=== PATIENT | male | born 1960 | race Asian ===

== ENCOUNTER 2016-06-02 14:04 | Outpatient (CLI) | payer MEDICAID | END 2016-06-02 14:05 | disposition home or self-care (01) | DX: M50.30 Other cervical disc degeneration, unspecified cervical region (principal) ==

== ENCOUNTER 2016-09-15 10:29 | Emergency (ER) | payer MEDICAID ==
[2016-09-15] MEDS ORDERED: oxyCOD/ACETAMIN 5 MG/325 MG TABLET PO STA (11:16)
[2016-09-15] MEDS ORDERED: oxyCOD/ACETAMIN 5 MG/325 MG TABLET PO ONE (11:18)
--- NOTE | 2016-09-15 11:20 | ED Physician Documentation ---
History of Present Illness - Stated complaint Stated Complaint: MALE - Chief complaint Chief Complaint: General - Additonal information Additional information: hx from pt 56 male to ER with rectal pain and R buttock pain no fever no abd pain no constipation diarrhea or bloody BM no NV no urinary sx hx lymphoma in remission since 2012 followed at [facility] Review of Systems Constitutional: denies: Fever Cardiac: denies: Chest pain / pressure Respiratory: denies: Dyspnea GI: reports: Other (rectal pain). denies: Abdominal Pain, Nausea, Vomiting, Constipation, Diarrhea, Bloody / black stool : denies: Dysuria Endocrine: denies: Easy bruising / bleeding Immunocompromised: denies: Immunocompromised PD PAST MEDICAL HISTORY - Past Medical History Cardiovascular: None Neuro: Headache/migraine Musculoskeletal: None - Present Medications Home Medications: Ambulatory Orders Medication Instructions Recorded Confirmed Ciprofloxacin HCl [Cipro] 500 mg PO BID #20 tablet 09/15/16 oxyCODONE [Roxicodone] 5 mg PO Q6H PRN #10 tablet 09/15/16 - Allergies Allergies/Adverse Reactions: Allergies Allergy/AdvReac Type Severity Reaction Status Date / Time No Known Drug Allergies Allergy Verified 09/15/16 10:36 PD ED PE NORMAL - Vitals Vital signs reviewed: Yes - Neck Neck: Supple, no meningeal sign - Cardiac Cardiac: RRR - Respiratory Respiratory: No respiratory distress, Clear bilaterally - Abdomen Abdomen: Soft, Non tender - Rectal Rectal: Other (no fissue, no hemorrhoid, nl external, on TRE there is a smooth tender non mobile swelling to R rectal wall, stool is soft and yellow) - Derm Derm: Normal color - Extremities Extremities: No deformity Results - Vitals Vitals: Vital Signs - 24 hr 09/15/16 09/15/16 10:33 13:19 Temperature 36.3 C L Heart Rate 72 67 Respiratory 16 16 Rate Blood Pressure 137/92 H 133/62 H O2 Saturation 100 97 Oxygen O2 Source Room air - Labs Labs: Laboratory Tests 09/15/16 09/15/16 11:26 11:26 WBC 6.6 RBC 5.05 Hgb 15.5 Hct 45.3 MCV 89.7 MCH 30.6 MCHC 34.2 RDW 12.2 Plt Count 198 MPV 8.7 Neut # 3.5 Lymph # 2.5 Coryell # 0.5 Eos # 0.1 Baso # 0.0 Absolute Nucleated RBC 0.00 Nucleated RBCs 0.1 Sodium 139 Potassium 3.9 Chloride 103 Carbon Dioxide 28 Anion Gap 8.0 BUN 15 Creatinine 0.9 Estimated GFR (MDRD) 87 L Glucose 132 H Calcium 9.4 - Rads (name of study) CT abd pelvis Radiology: See rad report Departure - Departure Disposition: Home, Self Care Clinical Impression: Rectal pain Condition: Good Instructions: ED Prostatitis Follow-Up: ETHAN ARAGON MD [Provider Admit Priv/Credential] - (for further evaluation and consideration of a colonoscopy) Prescriptions: Ciprofloxacin HCl [Cipro] 500 mg PO BID #20 tablet oxyCODONE [Roxicodone] 5 mg PO Q6H PRN #10 tablet PRN Reason: Severe Pain Comments: The CT scan was fine No enlarged lymph nodes and no sign of cancer Also no perirectal mass or abscess No hemorrhoids were seen or palpated on exam and you do not have a fissure to cause the pain It is possible that the tender swelling is coming from your prostate so I have prescribed antibiotics - take the antibiotics for 10 days and then follow up with your PMD for a recheck - you may need up to three weeks of antibiotics if the symptoms continue Also please follow up with our surgical clinic for further evaluation and consideration of a colonoscopy Return to the ER if worse of if new symptoms develop Take tylenol or motrin for the pain and only take the oxycodone of the pain is very severe and not relieved with tylenol or motrin Also please follow up with your PMD about your blood pressure - it was high today Forms: Activity restrictions Discharge Date/Time: 09/15/16 13:19
[2016-09-15 11:57] LABS: BASOPHILS % (AUTO) 0.7 %; EOSINOPHILS # (AUTO) 0.1 10^3/uL (0.0-0.7); EOSINOPHILS % (AUTO) 0.9 %; HCT - HEMATOCRIT 45.3 % (42.0-52.0); HGB - HEMOGLOBIN 15.5 g/dL (14.0-18.0); LYMPHOCYTES # (AUTO) 2.5 10^3/uL (1.5-3.5); LYMPHOCYTES % (AUTO) 38.1 %; MEAN CORPUSCULAR HEMOGLOBIN 30.6 pg (27.0-31.0); MEAN CORPUSCULAR HGB CONC 34.2 g/dL (32.0-36.0); MEAN CORPUSCULAR VOLUME 89.7 fL (80.0-94.0); MEAN PLATELET VOLUME 8.7 fL (7.4-11.4); MONOCYTES # (AUTO) 0.5 10^3/uL (0.0-1.0); MONOCYTES % (AUTO) 7.6 %; NEUTROPHILS # (AUTO) 3.5 10^3/uL (1.5-6.6); NEUTROPHILS % (AUTO) 52.7 %; NUCLEATED RED BLOOD CELLS AUTO 0.1 /100WBC; RED BLOOD COUNT 5.05 10^6/uL (4.70-6.10); RED CELL DISTRIBUTION WIDTH 12.2 % (12.0-15.0); UNCORRECTED WHITE BLOOD COUNT 6.6 x10^3/uL; WHITE BLOOD COUNT 6.6 x10^3/uL (4.8-10.8)
[2016-09-15 12:01] LABS: CALCIUM 9.4 mg/dL (8.5-10.3); CREATININE 0.9 mg/dL (0.6-1.2); POTASSIUM 3.9 mmol/L (3.5-5.0)
--- NOTE | 2016-09-15 12:55 | CT Preliminary Report ---
Exam: CT Abdomen/Pelvis W/ IMPRESSION: 1. Cholelithiasis. 2. No perirectal abscess [facility] SITE ID: [id number]
--- NOTE | 2016-09-15 12:57 | CT Report ---
EXAM: CT ABDOMEN AND PELVIS EXAM DATE: 09/15/2016 12:28 PM. CLINICAL HISTORY: R rectal/buttock pain, swelling COMPARISONS: None. TECHNIQUE: Routine helical CT imaging was performed through the abdomen and pelvis. IV contrast: 30 c c [id number]. Enteric contrast: No. Reconstructions: Coronal and sagittal. In accordance with CT protocol optimization, one or more of the following dose reduction techniques w ere utilized for this exam: automated exposure control, adjustment of mA and/or KV based on patient s ize, or use of iterative reconstructive technique. FINDINGS: Lung Bases: Unremarkable. Liver: Fatty infiltrated. Gallbladder/Bile Ducts: Cholelithiasis Spleen: Normal. Pancreas: Normal. Adrenal Glands: Normal. Kidneys: Normal. No masses or hydronephrosis. Peritoneal Cavity/Bowel: No perirectal abscess. No free fluid, free air or adenopathy. No masses or a cute inflammatory process. The appendix is well visualized and normal. Pelvic Organs: Normal. The bladder and visualized pelvic organs are within normal limits. Vasculature: No aneurysms or other significant abnormality. Bones: No significant abnormality. Other: No right buttock mass identified IMPRESSION: 1. Cholelithiasis. 2. No perirectal abscess [facility] Referring Provider Line: [phone] SITE ID: [id number]
[2016-09-15 13:20] VITALS: BP 133/62
== END 2016-09-15 13:19 | disposition home or self-care (01) ==
LOC: ED 10:29
DX: K62.89 Other specified diseases of anus and rectum (principal); R03.0 Elevated blood-pressure reading, without diagnosis of hypertension; Z85.72 Personal history of non-Hodgkin lymphomas
CPT/HCPCS: 36415; 74177; 80048; 85025; 99283; 99284; A9270

== ENCOUNTER 2016-11-03 09:59 | Outpatient (CLI) | payer MEDICAID ==
[2016-11-03 13:07] LABS: BASOPHILS % (AUTO) 0.6 %; EOSINOPHILS # (AUTO) 0.1 10^3/uL (0.0-0.7); EOSINOPHILS % (AUTO) 1.2 %; HCT - HEMATOCRIT 45.3 % (42.0-52.0); HGB - HEMOGLOBIN 15.2 g/dL (14.0-18.0); LYMPHOCYTES # (AUTO) 2.1 10^3/uL (1.5-3.5); LYMPHOCYTES % (AUTO) 35.8 %; MEAN CORPUSCULAR HEMOGLOBIN 30.5 pg (27.0-31.0); MEAN CORPUSCULAR HGB CONC 33.6 g/dL (32.0-36.0); MEAN CORPUSCULAR VOLUME 90.9 fL (80.0-94.0); MEAN PLATELET VOLUME 8.8 fL (7.4-11.4); MONOCYTES # (AUTO) 0.4 10^3/uL (0.0-1.0); MONOCYTES % (AUTO) 6.4 %; NEUTROPHILS # (AUTO) 3.3 10^3/uL (1.5-6.6); NUCLEATED RED BLOOD CELLS AUTO 0.1 /100WBC; RED BLOOD COUNT 4.99 10^6/uL (4.70-6.10); RED CELL DISTRIBUTION WIDTH 12.2 % (12.0-15.0); UNCORRECTED WHITE BLOOD COUNT 5.9 x10^3/uL; WHITE BLOOD COUNT 5.9 x10^3/uL (4.8-10.8)
[2016-11-03 13:24] LABS: PSA FREE 0.5 ng/mL (0.16-2.81)
[2016-11-03 13:25] LABS: PSA TOTAL 2.35 ng/mL (0.000-2.000)
[2016-11-03 13:33] LABS: ALBUMIN/GLOBULIN RATIO 1.6 (1.0-2.2); BILIRUBIN,TOTAL 1.1 mg/dL (0.2-1.0); BUN - BLOOD UREA NITROGEN 16 mg/dL (6-20); CALCIUM 9.4 mg/dL (8.5-10.3); CARBON DIOXIDE - CO2 28 mmol/L (21-32); CHLORIDE 104 mmol/L (101-111); CHOL/HDL RATIO 5.6 (<5.0); CHOLESTEROL 206 mg/dL; GFR - MDRD 77 (>89); GLUCOSE 99 mg/dL (70-100); HDL CHOLESTEROL 37 mg/dL; LDL/HDL RATIO 3.7 (<3.6); POTASSIUM 4.1 mmol/L (3.5-5.0); SODIUM 138 mmol/L (135-145); TOTAL PROTEIN 7.6 g/dL (6.7-8.2); TRIGLYCERIDES 158 mg/dL; VLDL CHOLESTEROL 32 mg/dL
== END 2016-11-03 10:00 | disposition home or self-care (01) ==
LOC: LAB.N 09:59
PROVIDERS: ATTEND Family Medicine
DX: Z85.79 Personal history of other malignant neoplasms of lymphoid, hematopoietic and related tissues (principal)
CPT/HCPCS: 36415; 80053; 80061; 84154; 85025; 85651

== ENCOUNTER 2017-06-20 08:00 | Outpatient (CLI) | payer MEDICAID ==
[2017-06-20 13:11] LABS: PSA FREE 0.39 ng/mL (0.16-2.81)
[2017-06-20 13:12] LABS: PSA TOTAL 2.02 ng/mL (0.000-2.000)
== END 2017-06-20 08:01 ==
LOC: LAB.N 08:00
PROVIDERS: ATTEND Family Medicine
DX: N41.9 Inflammatory disease of prostate, unspecified (principal)
CPT/HCPCS: 36415; 84154

== ENCOUNTER 2017-08-08 05:50 | Observation (INO) | payer MEDICAID ==
[2017-08-08] MEDS ORDERED: AMPICILLIN/SULBACTAM 3 GM in SODIUM CHLORIDE 0.9% MINIBAG 100 ML IV ONE (06:31)
[2017-08-08] MEDS ORDERED: LACTATED RINGERS 1,000 ML IV ONE ×2 (06:35→09:22)
[2017-08-08] MEDS ORDERED: BUPIVACAINE 0.5%-EPI 1:200000 PF 30 ML VIAL ONE (07:38)
[2017-08-08] MEDS ORDERED: BUPIVACAINE 0.5%-EPI 1:200000 PF 30 ML VIAL SUBQ ONE ×2 (08:55)
[2017-08-08] MEDS ORDERED: PROPOFOL 200 MG/20 ML VIAL IVP ONE (09:00)
[2017-08-08] MEDS ORDERED: ONDANSETRON 4 MG/2 ML VIAL IVP ONE (09:00)
[2017-08-08] MEDS ORDERED: SUCCINYLCHOLINE 200 MG/10 ML VIAL IVP ONE (09:00)
[2017-08-08] MEDS ORDERED: fentaNYL 100 MCG/2 ML VIAL IVP ONE (09:00)
[2017-08-08] MEDS ORDERED: LIDOCAINE-MPF 2% 5 ML VIAL IM ONE (09:00)
[2017-08-08] MEDS ORDERED: DEXAMETHASONE 4 MG/ML VIAL IVP ONE (09:00)
[2017-08-08] MEDS ORDERED: NEOSTIGMINE 1 MG/1 ML 10 ML MDV IVP ONE (09:00)
[2017-08-08] MEDS ORDERED: MIDAZOLAM 10 MG/2 ML VIAL IVP ONE (09:00)
[2017-08-08] MEDS ORDERED: GLYCOPYRROLATE 1 MG/5 ML VIAL IVP ONE (09:00)
[2017-08-08] MEDS ORDERED: METHYLENE BLUE 0.5% 50 MG/10 ML AMPULE ONE (09:14)
[2017-08-08] MEDS ORDERED: HYDROGEN PEROXIDE 3% 473 ML BOTTLE TOP ONE (09:15)
[2017-08-08] MEDS ORDERED: METHYLENE BLUE 0.5% 50 MG/10 ML AMPULE IR ONE (09:15)
[2017-08-08] MEDS ORDERED: ALBUTEROL NEB 2.5 MG/3 ML INH ONE (09:57)
--- NOTE | 2017-08-08 10:22 | XRAY Report ---
FRONTAL CHEST: 08/08/2017 CLINICAL INDICATION: Airway obstruction, hypoxia. FINDINGS: Frontal view of the chest is compared to previous CT of 01/22/2015. The cardiac silhouette is within normal limits. There are bilateral alveolar opacities, which may reflect aspiration or edema. No effusion or pneumothorax is present. IMPRESSION: BILATERAL PATCHY ALVEOLAR OPACITIES, WHICH MAY REPRESENT ASPIRATION OR EDEMA. TD: 08/08/2017 10:21
[2017-08-08] MEDS ORDERED: HYDROcod/ACETAM 5/325 MG TABLET PO PRN ×2 (12:27→12:31)
[2017-08-08] MEDS ORDERED: ONDANSETRON 4 MG/2 ML VIAL IVP PRN (12:27)
[2017-08-08] MEDS ORDERED: HYDROmorphone 0.5 MG/0.5 ML SYRINGE IVP PRN ×2 (12:27)
--- NOTE | 2017-08-08 12:55 | XRAY Report ---
FRONTAL CHEST: 08/08/2017 CLINICAL INDICATION: Low O2 sat. COMPARISON: Film from 0956 hours the same day. FINDINGS: Frontal view of the chest demonstrates a normal cardiac silhouette. Previously seen alveolar opacities have resolved. No effusion or pneumothorax is present. IMPRESSION: NORMAL CHEST. TD: 08/08/2017 12:54
[2017-08-08] MEDS ORDERED: ACETAMINOPHEN 325 MG TABLET PO PRN (13:23)
--- NOTE | 2017-08-08 13:31 | CONSULTATION NOTE ---
Referring Provider Name of Referring Provider:: Dr. Baljit Canales Consult Date: 08/08/17 Chief Complaint - Chief Complaint Chief Complaint: difficult to breath History of Present Illness - Admitted From Admitted From:: PACU - History Obtained From History obtained from: pt - History of Present Illness HPI Comment/Other: Mr. Ordonez is a 56-yrs-old male with a follicular lymphoma in remission since 2012, who present difficult to breath after I/D rectal abscess in PACU. Pt state he felt difficult breathing and cough after procedure. Pt denies chest pain, fever , chill. Pt also denies hx of cigarette smoking, COPD, and pulmonary diseases. CXR reveals bilateral patchy alveolar opacities, which may represent aspiration or edema. The lab test is pending. Pt has 96% Sats at 4 liter of O2, otherwise hemodynamically stable at the moment. History - Past Medical History Cardiovascular: reports: Hypertension, Other Respiratory: reports: None Neuro: reports: Headache/migraine Endocrine/Autoimmune: reports: None GI: reports: Other : reports: None HEENT: reports: Chronic vision loss, Chronic hearing loss Psych: reports: None Musculoskeletal: reports: Osteoarthritis, Gout Derm: reports: None MRSA Hx?: No - Past Surgical History General: reports: Colonoscopy, Other Meds/Allgy - Home Medications Home Medications: Ambulatory Orders Medication Instructions Recorded Confirmed No Known Home Medications [No 01/30/17 08/08/17 Known Home Medications] - Allergies Allergies/Adverse Reactions: Allergies Allergy/AdvReac Type Severity Reaction Status Date / Time No Known Drug Allergies Allergy Verified 09/15/16 10:36 Review of Systems - Constitutional Constitutional: denies: Fatigue, Fever, Chills, Malaise, Weakness, Poor appetite , Diaphoresis, Night sweats - Eyes Eyes: denies: Pain, Irritation, Blurred vision, Spots in vision, Field loss, Vision loss, Dipolpia - Ears, Nose & Throat Ears, Nose & Throat: denies: Ear pain, Nasal pain, Nasal discharge, Nosebleeds, Nasal obstruction, Nasal congestion, Sore throat, Mouth lesions, Bleeding gums - Cardiovascular Cariovascular: denies: Irregular heart rate, Palpitations, Chest pain, Edema, Lightheadedness, Syncope, Exertional dyspnea, Decr. exercise tolerance - Respiratory Respiratory: reports: Cough, SOB with exertion. denies: Sputum production, Wheezing, Snoring, Hemoptysis, Orthopnea, SOB at rest, Apnea, Stridor, Other - Gastrointestinal Gastrointestinal: denies: Abdominal pain, Abdominal distention, Constipation, Diarrhea, Change in bowel habits, Rectal bleeding, Black stools, Bloody stools, Nausea, Vomiting, Severo blood emesis, Coffee grounds emesis - Genitourinary Genitourinary: denies: Dysuria, Frequency, Urgency, Hematuria, Incontinence, Flank pain, Nocturia, Urethral discharge - Musculoskeletal Musculoskeletal: denies: Muscle pain, Stiffness, Limited range of motion, Muscle weakness, Gout, Joint pain - Integumentary Integumentary: denies: Rash, Pruritis, Lesions, Dryness, Lumps, Pigment changes - Neurological Neurological: denies: General weakness, Focal weakness, Headache, Dizziness, Numbness, Pre-existing deficit, Abnormal gait, Seizures, Incoordination, Slurred speech - Psychiatric Psychiatric: denies: Depression, Anxiety, Suicidal, Delusions, Hallucinations, Homicidal - Endocrine Endocrine: denies: Polyuria, Polydypsia, Polyphagia, Intolerance to cold - Hematologic/Lymphatic Hematologic/Lymphatic: denies: Anemia, Bruising, Petechiae, Blood clots, Lymphadenopathy, Bleeding tendencies, Recurrent infections Exam - Vital Signs Vital Signs: Vital Signs x48h Temp Pulse Pulse Resp BP Pulse Ox 08/08/17 13:09 96 08/08/17 12:55 98 08/08/17 12:45 96 08/08/17 12:30 94 08/08/17 12:20 94 08/08/17 12:10 94 08/08/17 12:00 97 08/08/17 11:50 97 08/08/17 11:40 93 08/08/17 11:30 100 08/08/17 11:20 99 08/08/17 11:16 70 08/08/17 11:10 97 08/08/17 10:55 94 08/08/17 10:40 99 08/08/17 10:31 91 L 08/08/17 10:20 99 08/08/17 10:10 97 08/08/17 10:00 93 08/08/17 09:55 91 L 08/08/17 09:50 80 L 08/08/17 09:46 65 L 08/08/17 06:44 36.4 C L 66 16 144/92 H 99 - Physical Exam General Appearance: positive: No acute distress, Alert. negative: Lethargic Eyes Bilateral: positive: Normal inspection, PERRL, No lid inflammation, Conjunctivae nml ENT: positive: ENT inspection nml, Pharynx nml. negative: Purulent nasal drainage, Pharyngeal erythema, Oral lesions Neck: positive: Nml inspection, Thyroid nml, No JVD, Trachea midline. negative : Thyromegaly, Lymphadenopathy (R), Lymphadenopathy (L), Stiff neck, Carotid bruit, Swelling/bruising, Tracheal deviation Respiratory: positive: Chest non-tender, No respiratory distress, Rhonchi. negative: Wheezes, Rales Cardiovascular: positive: Regular rate & rhythm, No murmur, No gallop. negative : Irregularly irregular, Extrasystoles, Tachycardia, Bradycardia, JVD present, Systolic murmur, Diastolic murmur Peripheral Pulses: positive: 2+ Abdomen: positive: Non-tender, No organomegaly, Nml bowel sounds, No distention. negative: Tenderness, Guarding, Rebound Back: positive: Nml inspection. negative: CVA tenderness (R), CVA tenderness (L ) Skin: positive: Color nml, No rash, Warm, Dry. negative: Cyanosis, Diaphoresis , Pallor Extremities: positive: Non-tender, Nml appearance. negative: Calf tenderness, Joint swelling, Obed's sign/cords Neurologic/Psychiatric: positive: Oriented x3, Sensation nml, Mood/affect nml. negative: Sensory loss, Facial droop, Slurred/abnml speech, Depressed mood/ affect Conclusion/Plan - Diagnosis Diagnosis: difficult to breath. CXR reveals bilateral patchy alveolar opacities , which may present aspiration or edema. Pt is status post of I/D procedure. 1 , Lasix 20 mg IV, once. 2, daily lab and vital to monitor, pt is on observation unit. 3, O2 supplement as needed, will consider INH treatment as clinic needed. 4, order A1C and lipid panel, hx of hyperglycemia and fatty liver infiltrate
[2017-08-08 13:36] LABS: BASOPHILS % (AUTO) 0.3 %; EOSINOPHILS % (AUTO) 0.1 %; HGB - HEMOGLOBIN 14.7 g/dL (14.0-18.0); LYMPHOCYTES # (AUTO) 0.6 10^3/uL (1.5-3.5); LYMPHOCYTES % (AUTO) 4.3 %; MEAN CORPUSCULAR HEMOGLOBIN 30.5 pg (27.0-31.0); MEAN CORPUSCULAR HGB CONC 33.4 g/dL (32.0-36.0); MEAN CORPUSCULAR VOLUME 91.2 fL (80.0-94.0); MEAN PLATELET VOLUME 9.5 fL (7.4-11.4); MONOCYTES # (AUTO) 0.3 10^3/uL (0.0-1.0); MONOCYTES % (AUTO) 2.4 %; NEUTROPHILS # (AUTO) 12.9 10^3/uL (1.5-6.6); NEUTROPHILS % (AUTO) 92.9 %; PLT - PLATELET COUNT 230 10^3/uL (130-450); RED BLOOD COUNT 4.82 10^6/uL (4.70-6.10); RED CELL DISTRIBUTION WIDTH 12.3 % (12.0-15.0); WHITE BLOOD COUNT 13.9 x10^3/uL (4.8-10.8)
[2017-08-08 13:47] LABS: ALBUMIN 4.1 g/dL (3.2-5.5); ALBUMIN/GLOBULIN RATIO 1.6 (1.0-2.2); BILIRUBIN,TOTAL 0.9 mg/dL (0.2-1.0); CALCIUM 8.7 mg/dL (8.5-10.3); CREATININE 0.9 mg/dL (0.6-1.2); PHOSPHORUS 2.4 mg/dL (2.5-4.6); TOTAL PROTEIN 6.7 g/dL (6.7-8.2)
[2017-08-08] MEDS ORDERED: FUROSEMIDE 40 MG/4 ML VIAL IVP ONE (14:00)
[2017-08-08 14:11] LABS: CHOL/HDL RATIO 5.6 (<5.0); CHOLESTEROL 184 mg/dL; HDL CHOLESTEROL 33 mg/dL; LDL CHOLESTEROL,CALCULATED 128 mg/dL; LDL/HDL RATIO 3.9 (<3.6); VLDL CHOLESTEROL 23 mg/dL
[2017-08-08 14:18] LABS: HB2 TOTAL 16.4 g/dL; HEMOGLOBIN A1C 0.64 g/dL; HEMOGLOBIN A1C % 5.7 % (4.6-6.2)
[2017-08-08] MEDS: ENOXAPARIN 40 MG/0.4 ML SYRINGE SUBQ SCH (14:55)
[2017-08-08] MEDS: SODIUM CHLORIDE FLUSH 0.9% 10 ML SYRINGE IVP PRN (14:56)
[2017-08-09] MEDS: SODIUM CHLORIDE FLUSH 0.9% 10 ML SYRINGE IVP SCH ×3 (00:14→09:31)
[2017-08-09 06:05] LABS: BASOPHILS % (AUTO) 0.2 %; EOSINOPHILS % (AUTO) 0.2 %; HGB - HEMOGLOBIN 13.8 g/dL (14.0-18.0); LYMPHOCYTES # (AUTO) 1.7 10^3/uL (1.5-3.5); LYMPHOCYTES % (AUTO) 15.8 %; MEAN CORPUSCULAR HGB CONC 33.5 g/dL (32.0-36.0); MEAN CORPUSCULAR VOLUME 89.5 fL (80.0-94.0); MEAN PLATELET VOLUME 8.2 fL (7.4-11.4); MONOCYTES # (AUTO) 0.7 10^3/uL (0.0-1.0); NEUTROPHILS # (AUTO) 8.5 10^3/uL (1.5-6.6); NEUTROPHILS % (AUTO) 77.8 %; PLT - PLATELET COUNT 194 10^3/uL (130-450); RED CELL DISTRIBUTION WIDTH 12.2 % (12.0-15.0); WHITE BLOOD COUNT 10.9 x10^3/uL (4.8-10.8)
[2017-08-09 06:59] LABS: ALBUMIN 4.1 g/dL (3.2-5.5); ALBUMIN/GLOBULIN RATIO 1.6 (1.0-2.2); BILIRUBIN,TOTAL 1.2 mg/dL (0.2-1.0); CALCIUM 9.2 mg/dL (8.5-10.3); CREATININE 0.9 mg/dL (0.6-1.2); TOTAL PROTEIN 6.6 g/dL (6.7-8.2)
[2017-08-09] MEDS: SODIUM CHLORIDE FLUSH 0.9% 10 ML SYRINGE IVP PRN (07:03)
--- NOTE | 2017-08-09 07:37 | XRAY Report ---
EXAM: CHEST RADIOGRAPHY EXAM DATE: 08/09/2017 06:12 AM. CLINICAL HISTORY: SOB. COMPARISON: 08/08/2017 at 1232 hrs. TECHNIQUE: 2 views. FINDINGS: Lungs/Pleura: No focal opacities evident. No pleural effusion. No pneumothorax. Normal volumes. Mediastinum: Heart and mediastinal contours are unremarkable. Other: None. IMPRESSION: Normal 2-view chest radiography for age. No significant change from prior. [facility] Referring Provider Line: [phone] SITE ID: [id number]
[2017-08-09] MEDS ORDERED: FAMOTIDINE 20 MG TABLET PO SCH (09:00)
[2017-08-09] MEDS: ENOXAPARIN 40 MG/0.4 ML SYRINGE SUBQ SCH (09:31)
[2017-08-09] MEDS ORDERED: HYDROmorphone 1 MG/ML CARPUJECT IVP PRN (11:08)
[2017-08-09] MEDS ORDERED: HYDROmorphone 2 MG/ML VIAL IVP PRN (11:09)
--- NOTE | 2017-08-09 12:16 | Discharge Plan ---
Discharge Plan Disposition: Home, Self Care Condition: Good Prescriptions: HYDROcod/ACETAM 5/325 [[place] 5/325] 1 - 2 tab PO Q4HR PRN #40 tablet PRN Reason: Pain Diet: Regular Activity Restrictions: No Restrictions Shower Restrictions: No Driving Restrictions: Yes (Not while on pain medication) Weight Bearing: Full Weight Additional Instructions or Follow Up instructions: sitz baths tid and after bowel movements Colace 100 mg 2 tablets po bid prn constipation No Smoking: If you smoke, Please STOP! Call for help. Follow-up with: Anjum Dumont MD [Primary Care Provider] - Baljit Canales MD [Provider Admit Priv/Credential] - 2 Weeks
[2017-08-09 13:04] VITALS: BP 127/71
--- NOTE | 2017-08-11 16:37 | OPERATIVE REPORT ---
DATE OF SERVICE: 08/08/2017 Physician: Baljit Canales MD PLEASE REVIEW AT [facility] CORRECTED A COUPLE TIMES -CONTAMINATED, CLEAN-CONTAMINATED, CONTAMINATED PREOPERATIVE DIAGNOSIS: Anal fistula. POSTOPERATIVE DIAGNOSIS: Anal fistula. PROCEDURE PERFORMED: Rectal exam under anesthesia and anal fistulotomy. OPERATING SURGEON: Baljit Canales MD ANESTHESIA: General. INDICATIONS FOR PROCEDURE: The patient is a 56-year-old male who has had periodic draining from the anal area for the last year. He had been seen in the emergency room with a CT scan not showing any abnormalities. His condition resolved. He now has had intermittent drainage for the last year and is now seeking medical help. On physical exam, he has drainage of purulent fluid from the anal canal. I could not see where it was draining from in the clinic. It is most likely from an anal fistula disease. FINDINGS AT SURGERY: The patient had a superficial posterior anal fissure being present. An anal fistulotomy was then performed without dividing any significant sphincteric muscle. PROCEDURE: After informed consent was obtained, patient was taken to the operating room and placed in a supine position. General anesthesia was administered. The patient was then placed in lithotomy position. His anal area was then prepped and draped in the usual sterile fashion. Looking in the columns, there was a crypt identified with the opening of the fistula being noted. A lacrimal duct probe was then inserted, and this proceeded to go posteriorly for several centimeters. A counterincision was then made over the tip of the lacrimal duct probe in the anoderm located posteriorly. The skin was incised, and then the subcutaneous tissue was then divided. There did not appear to be any significant sphincter muscles involved with the sphincter. The fistula tract was then curetted and cauterized. A moist dressing was then placed into the wound. There did not appear to be any other drainage into any deep space. A dry dressing was then placed on top of the moist. The patient was then taken out of the lithotomy position, awakened, extubated, and taken from the operating room in stable condition. ESTIMATED BLOOD LOSS: Less than 5 mL. COMPLICATIONS: None. CONDITION OF THE PATIENT AT END OF PROCEDURE: Stable. SPECIMENS: None. DRAINS/PACKS: The wound was packed open. CLASSIFICATION OF WOUND: Contaminated. cc: RSUSEL TD: 08/10/2017 13:41
== END 2017-08-09 13:15 | disposition home or self-care (01) ==
LOC: SDS 05:50 → OBS 12:27
PROVIDERS: ADMIT Surgery; ATTEND Surgery
PROC: 0DBQ0ZZ Excision of Anus, Open Approach (ICD-10-PCS; principal; 2017-08-08 07:30)
DX: K61.0 Anal abscess (principal); J95.89 Other postprocedural complications and disorders of respiratory system, not elsewhere classified; R06.00 Dyspnea, unspecified; Y83.8 Other surgical procedures as the cause of abnormal reaction of the patient, or of later complication, without mention of misadventure at the time of the procedure; Y92.234 Operating room of hospital as the place of occurrence of the external cause; R91.8 Other nonspecific abnormal finding of lung field; I10 Essential (primary) hypertension; G43.909 Migraine, unspecified, not intractable, without status migrainosus; H91.90 Unspecified hearing loss, unspecified ear; H54.7 Unspecified visual loss; M19.90 Unspecified osteoarthritis, unspecified site; M10.9 Gout, unspecified; Z85.72 Personal history of non-Hodgkin lymphomas; Z79.899 Other long term (current) drug therapy
CPT/HCPCS: 36415; 46270; 71045; 71046; 80053; 80061; 83036; 83735; 84100; 85025; 94660; G0378; J0330; J1650; J2250; J7120; 83721

== ENCOUNTER 2018-12-26 08:00 | Outpatient (CLI) | payer MEDICAID ==
[2018-12-26 12:18] LABS: EOSINOPHILS # (AUTO) 0.1 10^3/uL (0.0-0.7); EOSINOPHILS % (AUTO) 1.4 %; HGB - HEMOGLOBIN 15.1 g/dL (14.0-18.0); LYMPHOCYTES # (AUTO) 1.3 10^3/uL (1.5-3.5); LYMPHOCYTES % (AUTO) 31.1 %; MEAN CORPUSCULAR HEMOGLOBIN 30.8 pg (27.0-31.0); MEAN CORPUSCULAR HGB CONC 34.1 g/dL (32.0-36.0); MEAN CORPUSCULAR VOLUME 90.2 fL (80.0-94.0); MEAN PLATELET VOLUME 10.8 fL (7.4-11.4); MONOCYTES # (AUTO) 0.3 10^3/uL (0.0-1.0); MONOCYTES % (AUTO) 6.4 %; NEUTROPHILS # (AUTO) 2.5 10^3/uL (1.5-6.6); NEUTROPHILS % (AUTO) 59.9 %; PLT - PLATELET COUNT 183 10^3/uL (130-450); RED BLOOD COUNT 4.91 10^6/uL (4.70-6.10); RED CELL DISTRIBUTION WIDTH 11.9 % (12.0-15.0); WHITE BLOOD COUNT 4.2 x10^3/uL (4.8-10.8)
[2018-12-26 13:45] LABS: ALBUMIN 4.5 g/dL (3.2-5.5); ALBUMIN/GLOBULIN RATIO 1.6 (1.0-2.2); ALKALINE PHOSPHATASE 74 IU/L (42-121); ALT ALANINE AMINOTRANSFERASE 90 IU/L (10-60); AST ASPARTATE AMINOTRANSFERASE 55 IU/L (10-42); BILIRUBIN,TOTAL 1.3 mg/dL (0.2-1.0); BUN - BLOOD UREA NITROGEN 15 mg/dL (6-20); CALCIUM 8.9 mg/dL (8.5-10.3); CARBON DIOXIDE - CO2 25 mmol/L (21-32); CHLORIDE 110 mmol/L (101-111); CHOL/HDL RATIO 5.7 (<5.0); CHOLESTEROL 194 mg/dL; CREATININE 0.8 mg/dL (0.6-1.2); GFR - MDRD 99 (>89); GLUCOSE 104 mg/dL (70-100); HDL CHOLESTEROL 34 mg/dL; LDL CHOLESTEROL,CALCULATED 135 mg/dL; SODIUM 139 mmol/L (135-145); TOTAL PROTEIN 7.4 g/dL (6.7-8.2); VLDL CHOLESTEROL 25 mg/dL
== END 2018-12-26 23:59 | disposition home or self-care (01) ==
LOC: LAB.N 08:00
PROVIDERS: ATTEND Physician Assistant Medical
DX: R19.01 Right upper quadrant abdominal swelling, mass and lump (principal); E78.5 Hyperlipidemia, unspecified; Z00.00 Encounter for general adult medical examination without abnormal findings; R97.20 Elevated prostate specific antigen [PSA]; G56.01 Carpal tunnel syndrome, right upper limb; K21.9 Gastro-esophageal reflux disease without esophagitis; M25.521 Pain in right elbow
CPT/HCPCS: 36415; 80053; 80061; 83721; 84153; 84443; 85025

== ENCOUNTER 2018-12-26 08:27 | Outpatient (CLI) | payer MEDICAID ==
--- NOTE | 2018-12-26 18:37 | XRAY Report ---
Reason: ELBOW PAIN Procedure Date: 12/26/2018 Accession Number: [id number] / [id number] Procedure: XRN - Elbow 3 View RT CPT Code: FULL RESULT: EXAM: RIGHT ELBOW RADIOGRAPHY EXAM DATE: 12/26/2018 09:16 AM HISTORY: ELBOW PAIN. COMPARISON: NONE TECHNIQUE: AP, lateral and radial head views FINDINGS: No fracture, lytic or sclerotic bone lesion. Normal overall alignment. No joint effusion. Normal soft tissues. IMPRESSION: Normal elbow radiography. [facility]
== END 2018-12-26 08:28 | disposition home or self-care (01) ==
LOC: DI.N 08:27
PROVIDERS: ATTEND Physician Assistant Medical
DX: M25.521 Pain in right elbow (principal); R19.01 Right upper quadrant abdominal swelling, mass and lump; G56.01 Carpal tunnel syndrome, right upper limb; K21.9 Gastro-esophageal reflux disease without esophagitis; R78.5 Finding of other psychotropic drug in blood; Z00.00 Encounter for general adult medical examination without abnormal findings; E78.5 Hyperlipidemia, unspecified; R97.20 Elevated prostate specific antigen [PSA]

== ENCOUNTER 2019-01-04 09:23 | Outpatient (CLI) | payer MEDICAID ==
--- NOTE | 2019-01-06 11:26 | Ultrasound Report ---
Reason: CHOLELITHIASIS, 1 CM MOBILE MASS NEAR RUQ Procedure Date: 01/04/2019 Accession Number: [id number] / [id number] Procedure: US - Abdomen Limited CPT Code: FULL RESULT: EXAM: ABDOMEN ULTRASOUND LIMITED, RUQ EXAM DATE: 01/04/2019 11:00 AM. CLINICAL HISTORY: Right upper quadrant pain. Followup cholelithiasis. Palpable mass right upper quadrant anterior abdominal wall. COMPARISON: None. TECHNIQUE: Real-time scanning was performed with static images obtained. FINDINGS: Liver: Diffusely echogenic liver parenchyma most commonly associated with diffuse steatosis. 17.0 cm. Main portal vein flow: Hepatopetal. Gallbladder: Cholelithiasis. Sonographic Espitia's sign is normal. No significant gallbladder wall thickening. Biliary System: CBD measures 2.0 mm. No intrahepatic or extrahepatic ductal dilatation. Other: There are 2 palpable benign-appearing diffusely hyperechoic elliptical subcutaneous masses in the right upper quadrant abdominal wall. The larger mass measures 1.5 x 1.0 x 2.6 cm diameter, and the smaller mass measures 0.6 x 0.4 x 1.0 cm diameter. Both masses have classic appearance of lipomas. IMPRESSION: 1. Diffuse hepatic steatosis. 2. Cholelithiasis with no sonographic evidence of acute cholecystitis. 3. There are 2 small palpable right upper quadrant abdominal wall lipomas. Biopsy is not indicated. [facility]
== END 2019-01-04 09:24 | disposition home or self-care (01) ==
LOC: DI 09:23
PROVIDERS: ATTEND Physician Assistant Medical
DX: K76.0 Fatty (change of) liver, not elsewhere classified (principal); K80.20 Calculus of gallbladder without cholecystitis without obstruction; D17.1 Benign lipomatous neoplasm of skin and subcutaneous tissue of trunk
CPT/HCPCS: 76705

== ENCOUNTER 2019-01-27 08:41 | Outpatient (CLI) | payer MEDICAID ==
[2019-01-28 11:16] LABS: HEPATITIS C ANTIBODY NON-REACTIVE (NON-REACTIVE)
== END 2019-01-27 23:59 | disposition home or self-care (01) ==
LOC: LAB.N 08:41
PROVIDERS: ATTEND Physician Assistant Medical
DX: K76.0 Fatty (change of) liver, not elsewhere classified (principal)
CPT/HCPCS: 36415; 82248; 86803

== ENCOUNTER 2019-03-25 09:26 | Day surgery (SDC) | payer MEDICAID ==
[~2019-03-25 09:26] MED LIST: SODIUM/POTASSIUM/MAG SULFATES 354 ML PREP KIT PO SCH
[2019-03-25] MEDS ORDERED: fentaNYL 250 MCG/5 ML VIAL IVP ONE (09:27)
[2019-03-25] MEDS ORDERED: MIDAZOLAM 2 MG/2 ML VIAL IVP ONE (09:27)
[2019-03-25] MEDS ORDERED: LACTATED RINGERS 1,000 ML IV ONE (09:39)
[2019-03-25] MEDS ORDERED: LIDO GARGLE 30 ML BOTTLE TOP ONE (12:17)
[2019-03-25 13:43] VITALS: BP 130/82
== END 2019-03-25 09:27 | disposition home or self-care (01) ==
LOC: SDS 09:26
PROVIDERS: ATTEND Internal Medicine Gastroenterology
PROC: 0DBN8ZZ Excision of Sigmoid Colon, Via Natural or Artificial Opening Endoscopic (ICD-10-PCS; principal; 2019-03-25 11:00)
PROC: 0DB68ZZ Excision of Stomach, Via Natural or Artificial Opening Endoscopic (ICD-10-PCS; 2019-03-25 11:00)
DX: Z12.11 Encounter for screening for malignant neoplasm of colon (principal); D12.5 Benign neoplasm of sigmoid colon; K31.7 Polyp of stomach and duodenum; I10 Essential (primary) hypertension; Z80.0 Family history of malignant neoplasm of digestive organs; Z85.72 Personal history of non-Hodgkin lymphomas; E66.9 Obesity, unspecified; Z68.30 Body mass index [BMI] 30.0-30.9, adult
CPT/HCPCS: 43239; 45385; A9270; J3010; J7120

== ENCOUNTER 2020-01-26 08:00 | Outpatient (CLI) | payer MEDICAID ==
[2020-01-26 18:45] LABS: CHOL/HDL RATIO 5.5 (<5.0); CHOLESTEROL 224 mg/dL; HDL CHOLESTEROL 41 mg/dL; LDL CHOLESTEROL,CALCULATED 149 mg/dL; LDL/HDL RATIO 3.6 (<3.6); VLDL CHOLESTEROL 34 mg/dL
== END 2020-01-26 23:59 | disposition home or self-care (01) ==
LOC: LAB.WCP 08:00
PROVIDERS: ATTEND Physician Assistant
DX: Z00.00 Encounter for general adult medical examination without abnormal findings (principal); E78.5 Hyperlipidemia, unspecified; R97.20 Elevated prostate specific antigen [PSA]
CPT/HCPCS: 36415; 80061; 83721; 84153; 84443

== ENCOUNTER 2021-06-27 10:45 | Outpatient (CLI) | payer MEDICAID ==
[2021-06-27 18:03] LABS: BUN - BLOOD UREA NITROGEN 19 mg/dL (6-20); CALCIUM 9.3 mg/dL (8.5-10.3); CARBON DIOXIDE - CO2 27 mmol/L (21-32); CHLORIDE 102 mmol/L (101-111); CHOL/HDL RATIO 6.2 (<5.0); CHOLESTEROL 234 mg/dL; GFR - MDRD 76 (>89); GLUCOSE 111 mg/dL (70-100); HDL CHOLESTEROL 38 mg/dL; LDL CHOLESTEROL,CALCULATED 170 mg/dL; LDL/HDL RATIO 4.5 (<3.6); POTASSIUM 4.8 mmol/L (3.5-5.0); SODIUM 136 mmol/L (135-145); TRIGLYCERIDES 130 mg/dL; VLDL CHOLESTEROL 26 mg/dL
== END 2021-06-27 10:46 | disposition home or self-care (01) ==
LOC: LAB.N 10:45
PROVIDERS: ATTEND Family Medicine
DX: E78.5 Hyperlipidemia, unspecified (principal); E66.9 Obesity, unspecified; R03.0 Elevated blood-pressure reading, without diagnosis of hypertension
CPT/HCPCS: 36415; 80048; 80061; 83721

== ENCOUNTER 2021-07-04 11:30 | Outpatient (CLI) | payer MEDICAID | END 2021-07-04 11:31 | disposition home or self-care (01) | LOC: LAB.N 11:30 | PROVIDERS: ATTEND Family Medicine | DX: Z12.5 Encounter for screening for malignant neoplasm of prostate (principal) | CPT/HCPCS: 36415; 84153 ==

== ENCOUNTER 2021-08-04 12:38 | Outpatient (CLI) | payer MEDICAID ==
--- NOTE | 2021-08-04 13:44 | DEXA Report ---
PROCEDURE: Dexa Spine and/or Hip INDICATIONS: OSTEOPOROSIS TECHNIQUE: Dual energy x-ray absorptiometry (DXA) was performed on a IncreaseCard System. Regions measur ed are the AP Spine, femoral neck, and if needed forearm. COMPARISON: None. FINDINGS: Lumbar Spine: Bone Mineral Density 1.456 g/cm/cm,T score 2.0. Left Hip: Bone Mineral Density 1.221 g/cm/cm,T score 0.8. Left Femoral Neck: Bone Mineral Density 1.152 g/cm/cm, T score 0.6. (T score greater or equal to -1.0: NORMAL) (T score from -1.1 to -2.4: OSTEOPENIA) (T score less than or equal to -2.5 to: OSTEOPOROSIS) Impression: Normal bone mineral density. Patients with diagnosis of osteoporosis or osteopenia should have regular bone mineral density assess ment. For those eligible for Medicare, routine testing is allowed once every 2 years. Testing frequ ency can be increased for patients who have rapidly progressing disease or for those who are receivin g medical therapy to restore bone mass. Reviewed by: Rakesh Vega MD on 08/04/2021 1:43 PM PDT Approved by: Rakesh Vega MD on 08/04/2021 1:43 PM PDT Station ID: [id number]
== END 2021-08-04 12:39 | disposition home or self-care (01) ==
LOC: DI 12:38
PROVIDERS: ATTEND Family Medicine
DX: Z13.820 Encounter for screening for osteoporosis (principal)

== ENCOUNTER 2022-03-16 13:02 | Outpatient (CLI) | payer MEDICAID ==
[2022-03-16 18:20] LABS: PSA TOTAL 3.606 ng/mL (0.000-2.000)
[2022-03-16 18:59] LABS: PSA FREE 0.721 ng/mL (0.16-2.81)
== END 2022-03-16 13:03 | disposition home or self-care (01) ==
LOC: LAB.N 13:02
PROVIDERS: ATTEND Family Medicine
DX: R97.20 Elevated prostate specific antigen [PSA] (principal)
CPT/HCPCS: 36415; 84153; 84154

== ENCOUNTER 2022-11-16 09:11 | Outpatient (CLI) | payer MEDICAID | END 2022-11-16 09:12 | disposition home or self-care (01) | LOC: LAB.N 09:11 | PROVIDERS: ATTEND Urology | DX: R97.20 Elevated prostate specific antigen [PSA] (principal) | CPT/HCPCS: 36415; 84153 ==

== ENCOUNTER 2022-12-17 11:09 | Outpatient (CLI) | payer MEDICAID | END 2022-12-17 11:10 | disposition short-term general hospital (02) | LOC: EMS 11:09 | DX: I21.3 ST elevation (STEMI) myocardial infarction of unspecified site (principal) | CPT/HCPCS: A0425; A0427; A0999 ==

== ENCOUNTER 2023-01-07 13:18 | Outpatient (CLI) | payer MEDICAID ==
--- NOTE | 2023-01-07 15:29 | Ultrasound Report ---
PROCEDURE: Carotid Doppler Complete INDICATIONS: HIST OF ST MS TECHNIQUE: Color and pulse Doppler interrogation was performed of both carotid systems, with image documentation and velocity measurements. COMPARISON: None. FINDINGS: Right side: Brachial blood pressure: 120/75 mm Hg. Common carotid artery peak systolic velocity: 61 cm/sec. Internal carotid artery peak systolic velocity: 84 cm/sec. Internal carotid artery end diastolic velocity: 34 cm/sec. External carotid artery peak systolic velocity: 97 cm/sec. ICA/CCA peak systolic ratio: 1.3 . Smith scale imaging description: No significant atherosclerotic plaque. Percent internal carotid artery stenosis: No hemodynamically significant stenosis. Vertebral artery: Flow direction is antegrade. Left side: Brachial blood pressure: 119/73 mm Hg. Common carotid artery peak systolic velocity: 77 cm/sec. Internal carotid artery peak systolic velocity: 93 cm/sec. Internal carotid artery end diastolic velocity: 43 cm/sec. External carotid artery peak systolic velocity: 70 cm/sec. ICA/CCA peak systolic ratio: 1.2 . Smith scale imaging description: No significant atherosclerotic plaque. Percent internal carotid artery stenosis: No hemodynamically significant stenosis. Vertebral artery: Flow direction is antegrade. IMPRESSION: 1. In the right internal carotid artery, there is no hemodynamically significant stenosis based on pe ak systolic velocity criteria. 2. In the left internal carotid artery, there is no hemodynamically significant stenosis based on pea k systolic velocity criteria. 3. Antegrade blood flow within the right vertebral artery. 4. Antegrade blood flow within the left vertebral artery. The estimate of stenosis included in the report of the imaging study was calculated using the [facility]-end orsed standards of carotid artery stenosis. Reviewed by: Devyn Mann MD on 01/07/2023 3:28 PM PDT Approved by: Devyn Mann MD on 01/07/2023 3:28 PM PDT Station ID: [id number]
== END 2023-01-07 13:19 | disposition home or self-care (01) ==
LOC: DI 13:18
PROVIDERS: ATTEND Physician Assistant
DX: I25.2 Old myocardial infarction (principal)
CPT/HCPCS: 93880

== ENCOUNTER 2023-08-20 13:35 | Outpatient (CLI) | payer MEDICAID | END 2023-08-20 13:36 | disposition home or self-care (01) | LOC: LAB.N 13:35 | PROVIDERS: ATTEND Urology | DX: R97.20 Elevated prostate specific antigen [PSA] (principal) | CPT/HCPCS: 36415; 84153 ==